=== PATIENT | male | born 1960 | race African-American/Black ===

== ENCOUNTER 2022-06-15 14:23 | Emergency (ER) | payer OTHER ==
[~2022-06-15] VITALS: Ht 182.9 cm; Wt 87.0 kg
[2022-06-15 14:53] VITALS: BP 157/94
== END 2022-06-15 21:22 | disposition left against medical advice (07) ==
LOC: ER 14:44
DX: Z53.21 Procedure and treatment not carried out due to patient leaving prior to being seen by health care provider (principal)